=== PATIENT | male | born 1945 | race Caucasian/White ===

== ENCOUNTER 2024-08-11 23:51 | Observation (INO) | payer MEDICARE, OTHER, SELFPAY ==
[2024-08-11 15:55] VITALS: BP 149/87
--- NOTE | 2024-08-11 16:10 | ED.GENMED ---
ED Provider Triage
<Mai Doherty NP - Last Filed: 08/11/24 16:20>
-
Attestation: A medical screening examination has been initiated by a qualified medical provider. Based on the assessment performed at this time, it has been determined that an emergent medical condition may exist and the patient has been informed
that further medical evaluation and possible additional diagnostic testing may be needed.
HPI: Woke up nauseous and dizzy this 8:30 a.m. Vomited 3-4 times. Symptoms lasted until one hour ago. Now feels 'a little nauseous.'
GENERAL: Alert , in no apparent distress
ENT: No visible abnormalities.
LUNGS: No acute respiratory distress
NEUROLOGICAL: Alert and oriented
SKIN: Skin intact. No visible changes.
MUSCULOSKELETAL: Moving extremities normally
PSYCH: Normal and appropriate interaction.
This is a medical evaluation conducted in person to initiate diagnostic evaluation and provide initial therapeutics. Please see further documentation by the treating clinician.
History of Present Illness
<Mai Doherty JIG BORE TOOL MAKER - Last Filed: 08/11/24 16:20>
General
Chief Complaint: Dizziness
Time Seen by Provider: 08/11/24 19:43
<KHALIF Villalobos - Last Filed: 08/11/24 23:04>
General
Source: patient
Exam Limitations: none
History of Present Illness
History of Present Illness:
This is a 78 year old male that comes in with c/o dizziness. States that he awoke in the morning and got up to the bathroom and the room was spinning. States that he got back into bed for a couple more hours and when he got up he was still
dizzy. States that he was nauseated and did vomit several times. States that he is feeling better but is still nauseated. Denies any fever, chills, chest pain, SOB, abd pain, diarrhea, headache, urinary burning.
Past History
<Mai V. Day, JIG BORE TOOL MAKER - Last Filed: 08/11/24 16:20>
Past History
ED Past Medical History: GERD, Hypercholesterolemia and Other (prostate enlargement)
ED Past Surgical History: Orthopedic
Social History
Tobacco: Non-smoker
Personal:
Living: with family
Employment: Employed ([employer])
<KHALIF Villalobos - Last Filed: 08/11/24 23:04>
Past History
ED Past Medical History: GERD
ED Past Surgical History: Orthopedic (Brad knee surgery, Carpal tunnel left, ) and Other (Cataracts, Hernia repair)
Social History
Tobacco: Former smoker
Alcohol: None
Personal:
Living: with family
Review of Systems
<KHALIF Villalobos - Last Filed: 08/11/24 23:04>
Review of Systems
All Other Systems: ROS reviewed and negative except as documented in HPI and ROS
Constitutional: Reports no symptoms; Denies fever or chills
EENT: Reports no symptoms
Respiratory: Reports no symptoms; Denies cough or trouble breathing
Cardiac: Reports no symptoms; Denies chest pain
ABD/GI: Reports nausea and vomiting; Denies abdominal pain or diarrhea
: Reports no symptoms; Denies dysuria, frequency or urgency
Musculoskeletal: Reports no symptoms
Skin: Reports no symptoms
Neurological: Reports dizzy; Denies headache
Psychiatric: Reports no symptoms
Phy Exam
<KHALIF Villalobos - Last Filed: 08/11/24 23:04>
General Physical Exam
General Presentation: well appearing and no apparent distress
General age: appears stated age
General Skin: warm and dry
General Habitus: elderly
General Mental: alert
General Hydration: appears well hydrated
ENT Exam
ENT Exam: TM's normal, pharynx normal and neck supple
Eye Exam
Eye Exam: EOMI
Cardiovascular Exam
Cardiovascular Exam: regular rate/rhythm, no edema, no murmur and normal peripheral pulses
Pulmonary Exam
Pulmonary Exam: lungs clear, no respiratory distress, no rales, chest non tender, no crackles, no rhonchi, no wheezing and no cough
Gastrointestinal Exam
Gastrointestinal Exam: normal bowel sounds, non tender, soft, no organomegaly, no pulsatile mass and non distended
Neurological Exam
Neurological Exam: alert, oriented x3 and other (Dizzy slightly with change in position )
Musculoskeletal Exam
Musculoskeletal Exam: full ROM and no edema
Skin Exam
Skin Exam: normal color, warm/dry, no rash and no petechia
Psychiatric Exam
Psychiatric Exam: normal mood/affect
Course
<Mai Doherty, JIG BORE TOOL MAKER - Last Filed: 08/11/24 16:20>
Orders/Labs/Results
Orders:
Orders
08/11/24 16:17
CMP [Comprehensive Metabolic Panel] Urgent
Complete Blood Count/With Diff Urgent
Lipase Urgent
Urinalysis Reflex To Culture Urgent
Date Specimen was Collected: 08/11/24
Time Specimen was Collected: 16:02
08/11/24 20:11
0.9% Sodium Chloride 500 ml [Nss] 500 ml IV BOLUS
Meclizine [Antivert] 50 mg PO NOW STA
Ondansetron Injectable [Zofran] 4 mg IV NOW STA
08/11/24 20:17
Electrocardiogram (*1) Urgent
Reason for Study: Vertigo / Dizzy
EKG- Treatment ONCE
08/11/24 20:52
Troponin I Urgent
08/11/24 21:44
CT Head W/o Iv Contrast Urgent
Comment:
Reason For Exam: Dizziness.
Abnormal Lab Results
08/11/24
16:17
RBC 4.12 L 10^6/uL
(4.70-6.10)
Hct 38.5 L %
(39.0-52.0)
MCH 32.3 H pg
(27.0-31.0)
Absolute Neuts (auto) 7.3 H 10^3/uL
(1.4-6.5)
Neutrophils % 81.4 H %
(42.2-75.2)
Lymphocytes % 13.2 L %
(20.5-51.1)
Glucose 119 H mg/dl
(70-99)
08/11/24 16:17
08/11/24 16:17
Vital Signs
Initial and Last Documented VS:
Initial Vital Signs
Temp Pulse Resp BP Pulse Ox
97.8 F 85 16 149/87 98
08/11/24 15:55 08/11/24 15:55 08/11/24 15:55 08/11/24 15:55 08/11/24 15:55
Last Documented Vital Signs
Temp Pulse Resp BP Pulse Ox
97.8 F 64 15 136/69 97
08/11/24 15:55 08/11/24 22:00 08/11/24 22:00 08/11/24 22:00 08/11/24 18:03
<KHALIF Villalobos - Last Filed: 08/11/24 23:04>
Orders/Labs/Results
Orders:
Orders
08/11/24 16:17
CMP [Comprehensive Metabolic Panel] Urgent
Complete Blood Count/With Diff Urgent
Lipase Urgent
Urinalysis Reflex To Culture Urgent
Date Specimen was Collected: 08/11/24
Time Specimen was Collected: 16:02
08/11/24 20:11
0.9% Sodium Chloride 500 ml [Nss] 500 ml IV BOLUS
Meclizine [Antivert] 50 mg PO NOW STA
Ondansetron Injectable [Zofran] 4 mg IV NOW STA
08/11/24 20:17
Electrocardiogram (*1) Urgent
Reason for Study: Vertigo / Dizzy
EKG- Treatment ONCE
08/11/24 20:52
Troponin I Urgent
08/11/24 21:44
CT Head W/o Iv Contrast Urgent
Comment:
Reason For Exam: Dizziness.
Abnormal Lab Results
08/11/24
16:17
RBC 4.12 L 10^6/uL
(4.70-6.10)
Hct 38.5 L %
(39.0-52.0)
MCH 32.3 H pg
(27.0-31.0)
Absolute Neuts (auto) 7.3 H 10^3/uL
(1.4-6.5)
Neutrophils % 81.4 H %
(42.2-75.2)
Lymphocytes % 13.2 L %
(20.5-51.1)
Glucose 119 H mg/dl
(70-99)
08/11/24 16:17
08/11/24 16:17
Hyperglycemia. Lipase normal at 41, Urine negative for infection.
Vital Signs
Initial and Last Documented VS:
Initial Vital Signs
Temp Pulse Resp BP Pulse Ox
97.8 F 85 16 149/87 98
08/11/24 15:55 08/11/24 15:55 08/11/24 15:55 08/11/24 15:55 08/11/24 15:55
Last Documented Vital Signs
Temp Pulse Resp BP Pulse Ox
97.8 F 64 15 136/69 97
08/11/24 15:55 08/11/24 22:00 08/11/24 22:00 08/11/24 22:00 08/11/24 18:03
Sollt;KHALIF Villalobos - Last Filed: 08/11/24 23:04>
MDM/Problems Addressed
Differential Diagnosis Includes:
Vertigo,
MDM/Problems Addressed:
This is a 78 year old male that comes in with c/o dizziness that he awoke with this morning. States that he is feeling some better now but has been nauseated and vomited.
Will get labs, CT head and medicate with Antivert.
Back into see patient. Explained that his blood work and urine are normal. Patient states that he is still feeling dizzy. CT is questionable and patient will need MRI to r/o any cerebellar infarctions. Will admit. Hospitalist notified.
Chronic conditions affecting care:
NA
Acute Exacerbation and/or Progression of Chronic Illness:
NA
<KHALIF Villalobos - Last Filed: 08/11/24 23:04>
*Radiology
Radiology exam reviewed: radiology read reviewed (CT head-Prominence of ecxtra-axial CSF anterior to the cerebellar hemispheres, greater on the right compared to the left. Most likely represents small bilateral arachnoid cysts. Although less likely,
this could also possibly be sequela of previous peripheral cerebellar infarctions. If further) and all reviewed NAD by ED Provider (CT cont- imaging evaluation is desired, consideration for MRI of the brain. Moderate ventricular dilation, which
appeaers slightly greater than degree of atropohy. Correlate clinically for any evidence of normal pressure hydrocephalus. )
*Pulse Oximetry
Patient hypoxic: no
*EKG
Interpreted by ED Provider?: Yes
*Counter Top Maker Interpretation
Rate: Counter Top Maker- N/A
*Critical Care Note
Total Time (30-74mins, 75-104mins- exclusive of procedures): Not Applicable
ED Attending Note
<Mai Doherty JIG BORE TOOL MAKER - Last Filed: 08/11/24 16:20>
-
Portions of this chart may have been created with voice recognition software.� Occasional wrong word or��sound alike� substitutions may have occurred due to the inherent limitations of voice recognition software.
Discharge Plan
Departure
Patient Disposition: Admit
Date of Disposition: 08/11/24
Time of Disposition: 23:03
Admit to: Telemetry
Presentation/result/management discussed w/ accepting MD/DO: Hospitalist
Patient with high blood pressure during this ER visit?: Yes
Condition: Good
Covid-19: Not Applicable
Discharge Problem:
Dizziness
Referrals:
Juan Antonio Vickers MD [Family Provider] -
Interventions
Interventions:
*Risk Screen - Suicide Last Done: 08/11/24 15:55
*General Assessment Last Done: 08/11/24 22:16
*Neglect/Abuse Screening Last Done: 08/11/24 15:55
*ED COVID-19 Vaccine History Last Done: 08/11/24 22:16
ED- Neurological Assessment Last Done: 08/11/24 22:16
ED Swallowing Screen Last Done: 08/11/24 22:17
Discharge Date and Time
Print Language: FRENCH
[2024-08-11 16:27] LABS: % Basophils 0.1 % (0-2); % Eosinophils 0.8 % (0-6); % Immature Granulocytes 0.2 % (0-0.5); % Lymphocytes 13.2 % (20.5-51.1); % Monocytes 4.3 % (1.7-9.3); % Neutrophils 81.4 % (42.2-75.2); Absolute Eosinophils 0.1 10^3/uL (0-0.7); Absolute Lymphocytes 1.2 10^3/uL (1.2-3.4); Absolute Monocytes 0.4 10^3/uL (0.1-0.6); Absolute Neutrophils 7.3 10^3/uL (1.4-6.5); Hematocrit 38.5 % (39.0-52.0); Hemoglobin 13.3 g/dL (13.0-18.0); Mean Corp Hgb Conc. 34.5 g/dL (33.0-37.0); Mean Corpuscular Hgb 32.3 pg (27.0-31.0); Mean Corpuscular Volume 93.4 fL (80.0-94.0); Mean Platelet Volume 9.1 fL (7.4-10.4); Nucleated Red Blood Cells % 0 % (-); Platelet Count 261 10^3/uL (130-400); Red Blood Cell Count 4.12 10^6/uL (4.70-6.10); Red Cell Dist. Width 12.9 % (11.5-14.5); White Blood Cell Count 8.9 10^3/uL (4.8-10.8)
[2024-08-11 16:42] LABS: ALT (SGPT) 25 U/L (0-50); AST (SGOT) 33 U/L (17-59); Albumin 4.2 g/dl (3.5-5.0); Alkaline Phosphatase 85 U/L (38-126); Blood Urea Nitrogen 14 mg/dl (9-20); Calcium 9.3 mg/dl (8.4-10.2); Carbon Dioxide 28 mmol/L (22-30); Chloride 103 mmol/L (98-107); Glucose 119 mg/dl (70-99); Lipase 41 U/L (23-300); Potassium 4.1 mmol/L (3.5-5.1); Sodium 142 mmol/L (135-145); Total Bilirubin 0.7 mg/dl (0.2-1.3); eGFR > 60.00
[2024-08-11 16:50] LABS: Urine Albumin Negative (Neg - Trace); Urine Bilirubin Negative (Negative); Urine Character Clear (Clear); Urine Color Yellow; Urine Glucose Negative (Negative); Urine Ketone Negative (Negative); Urine Leukocyte Negative (Negative); Urine Nitrite Negative (Negative); Urine Occult Blood Negative (Negative); Urine Specific Gravity 1.015 (<1.030); Urine Urobilinogen Negative (Neg - 1+)
[2024-08-11 18:03] VITALS: BP 153/86
[2024-08-11] MEDS: NSS 500 IV (20:48)
[2024-08-11] MEDS: ANTIVERT 50 MG PO (20:49)
[2024-08-11] MEDS: ZOFRAN 4 MG IV (20:49)
[2024-08-11 20:51] VITALS: BP 155/79
[2024-08-11 21:00] VITALS: BP 131/78
[2024-08-11 21:27] LABS: Troponin I < 0.012 ng/ml
[2024-08-11 22:00] VITALS: BP 136/69
[2024-08-11 23:02] VITALS: BP 141/71
--- NOTE | 2024-08-11 23:28 | W.PN.UPDATE ---
Update Note
Progress Note Update
This note serves as an addendum to the H&P by bread stacker GEORGIE Karina BISWAS
HPI
78M non smoker sent from [facility]/V with underlying HX HX HLD on Rosuvastatin, BPH on Finasteride
- report woke up with abrupt onset of nausea, dizzy associated with vomiting times 3.
- reports swimming in the pool and hot tuba t [facility] independently living
PHX GERD, Hypercholesterolemia and Other (prostate enlargement)
Vital Signs
Temp Pulse Resp BP Pulse Ox
97.8 F 68 17 141/71 97
08/11/24 15:55 08/11/24 23:15 08/11/24 23:15 08/11/24 23:02 08/11/24 18:03
PE
Gen: NAD , Dizzy slightly with change in position
HEENT:
Neck: supple
Lungs: CTA
Cor: RRR S1 S2
Abdomen: soft NT NG NRT
CHICKEN BONER: AAO3
MS: no edema
Psych:
Data
Unremarkable Labs
NEG TPNI
NG UA
EKG
NORMAL SINUS RHYTHM
CANNOT RULE OUT ANTERIOR INFARCT , AGE UNDETERMINED
ABNORMAL ECG
NO PREVIOUS ECGS AVAILABLE
HCT:
Prominence of extra-axial CSF anterior to the cerebellar hemispheres, greater on the right compared to the left.
Most likely this represents small bilateral arachnoid cysts.
Although less likely, this could also possibly be sequela of previous peripheral cerebellar infarctions.
If further imaging evaluation is desired, consideration for MRI of the brain.
ASSESSMENT & PLAN
Abrupt onset of positional diziness with N/V
No focal exam . No Nystagmus
DDX: acute labyrinthitis , BPPV >> less likely central origin
- Ortho VSS
- abnormal HCT ? small bilateral arachnoid cysts.
- proceed with Brain MRI
- c/w all OP Meds
- Meclizine PRN
- PT/OT
- Neuro consult
DVT Px: SCD
Full code
Obs TLM
--- NOTE | 2024-08-11 23:39 | HPS.HSE ---
Family Physician
-
Family Physician: Juan Antonio Vickers
Chief Complaint
-
Dizziness
History of Present Illness
Patient is a 78 y/o male past medical history of hyperlipidemia and BPH who presents with dizziness. Patient reports around 7:30AM when he sat up in bed to go use the bathroom he began experiencing dizziness. He states after resting symptoms did
improve. However symptoms have persisted, and he notes with position changes he experiences a spinning sensation which can be quite severe triggering nausea. He denies similar episodes in the past. He denies any changes in hearing, tinnitus or
ear fullness. He denies focal numbness, tingling or weakness.
Medical History
Past Medical History
Past Medical History: Reports Other
Additional Past Medical History:
Hyperlipidemia
BPH
GERD
Past Surgical History: Reports Other
Additional Past Surgical History:
Bilateral Knee Arthroscopy
Left Carpal Tunnel Release
Hernia Repair
Social History
Tobacco: Former Smoker (Quit about 15 years ago)
Family History
Family History: Not pertinent
Allergies / Home Medications
Allergies reflects when Allergies were last updated in [employer]
Home Medications with original date entered in [employer]
Allergy/Medication List:
Allergies
Allergy/AdvReac Type Severity Reaction Status Date / Time
No Known Allergies Allergy Unverified 11/17/14 09:28
Home Medications
alfuzosin 10 mg tablet,extended release 24 hr 10 mg PO HS 08/11/24
azelastine 0.05 % eye drops 1 drp BOTH EYES BID 08/11/24
esomeprazole magnesium 20 mg capsule,delayed release (Nexium) 20 mg PO DAILY 08/11/24
finasteride 5 mg tablet 5 mg PO HS 08/11/24
rosuvastatin 10 mg tablet 10 mg PO HS 08/11/24
triamcinolone acetonide 0.1 % topical ointment 1 applic topical DAILY athletes foot 08/11/24
Review of Systems
-
A 12 point ROS was completed and negative except as noted: Yes
Constitutional: Denies Fever or Chills
EENT: Denies Sore Throat or Runny Nose
Respiratory: Denies Cough or Trouble Breathing
Cardiac: Denies Chest Pain or Palpitations
Neurological: Reports See HPI
Physical Exam
Vital Signs
Vital Signs
Temp Pulse Resp BP Pulse Ox
97.8 F 74 17 141/71 97
08/11/24 15:55 08/11/24 23:30 08/11/24 23:15 08/11/24 23:02 08/11/24 18:03
Physical Exam
General: Comfortable and Conversant
HEENT: Anicteric, Moist mucous membranes and PERRLA (No nystagmus )
Respiratory: Clear and Non Labored Respirations
Cardiac: S1/S2 and Regular Rhythm
GI: Soft and Non Tender
Rectal: Deferred by Provider
Musculoskeletal: No Clubbing, No Cyanosis and No Edema
Skin: Warm and Dry
Neuro: Awake, Alert, Oriented, Nonfocal/grossly intact and Other (Intact finger to nose)
Laboratory Results
-
08/11/24 16:17
08/11/24 16:17
Laboratory Results
Total Bilirubin 0.7 mg/dl (0.2-1.3) 08/11/24 16:17
AST 33 U/L (17-59) 08/11/24 16:17
ALT 25 U/L (0-50) 08/11/24 16:17
Alkaline Phosphatase 85 U/L (38-126) 08/11/24 16:17
Troponin I < 0.012 ng/ml 08/11/24 20:52
Lipase 41 U/L (23-300) 08/11/24 16:17
Data Reviewed
-
CT Scan: Report Reviewed by me
Lab Data: Labs Reviewed by me
Impression/Plan
-
Dizziness, suspect labyrinthitis vs BPPV, less likely acute stroke
-Consult Neurology
-Check Brain MRI
-Consult PT/OT
-Continue Meclizine prn
Hyperlipidemia
-Continue Crestor
BPH
-Continue finasteride
GERD
-Continue PPI
DVT proph: SCDs
Code Status: Full Code
[2024-08-12] VITALS (7 sets, daily range): BP systolic 135–166; BP diastolic 71–98; PULSE 62–95; BMI 28.8
--- NOTE | 2024-08-12 05:34 | PTCARENOTE ---
Received pt from the ED via stretcher. Pt with steady gait into the room. AAOx3, NSR/sinus nanette on the monitor, +1 edema to b/l LE, lungs clear, +bowel sounds, pt continent of bowel and bladder. Remainder of assessment as documented. Pt offers no
complaints, states he has mild dizziness with position changes, when he sits for a minute between position changes, dizziness decreases. Orthostatics negative. Pt updated on plan for neuro consult in the AM and potential for MRI. Pt oriented to unit
and call darden, resting comfortably in bed.
[2024-08-12 07:13] LABS: Hematocrit 33.8 % (39.0-52.0); Hemoglobin 11.5 g/dL (13.0-18.0); Mean Corpuscular Hgb 31.1 pg (27.0-31.0); Mean Corpuscular Volume 91.4 fL (80.0-94.0); Mean Platelet Volume 9.5 fL (7.4-10.4); Platelet Count 274 10^3/uL (130-400); Red Cell Dist. Width 13.2 % (11.5-14.5); White Blood Cell Count 6.8 10^3/uL (4.8-10.8)
[2024-08-12 07:33] LABS: Blood Urea Nitrogen 13 mg/dl (9-20); Carbon Dioxide 30 mmol/L (22-30); Chloride 105 mmol/L (98-107); Estimated Creatinine Clearance 64 ml/min; Glucose 86 mg/dl (70-99); HDL Cholesterol 43 mg/dl; LDL Cholesterol, Calculated 49 mg/dl; Potassium 3.8 mmol/L (3.5-5.1); Sodium 143 mmol/L (135-145); Total Cholesterol 109 mg/dl (50-199); Triglyceride 85 mg/dl (10-149); Very Low Density Lipoprotein 17 mg/dl (0-30); eGFR > 60.00
--- NOTE | 2024-08-12 08:31 | CON.NEURO ---
Consultation
Order
Date of Consultation: 08/12/24
Requesting Provider: Abigail Jc PA-C
Reason for Consult: vertigo
CC: dizziness
HPI: This is a 78-year-old man who presented to [facility] on August 11, 2024 with dizziness. According to the patient
According to the patient he developed an acute sensation of constant, non positional room spinning with associated nausea and imbalance and several episodes of emesis that he developed a pulmonary awakening on the day of presentation
His symptoms reportedly lasted for several hours with significant improvement as of now. No reports of head trauma, headache, dysarthria, dysphagia visual, motor or sensory changes. Mr. Corbett denied having ear pain, tinnitus or fever. He went
swimming on Sunday afternoon prior to the onset of symptoms
ER VS: 149/87-155/79, 85, afebrile
PDMP: No recently prescribed medications
Labs: glucose�119 normal WBCs, platelets, sodium, UA, troponin, LDL�49,
CT head- bilateral arachnoid cysts, less likely infarcts, ventriculomegaly 'slightly greater' than degree of atrophy based on radiology report. No callosal angle or Yeh ration is provided.
MAR: Meclizine 50 mg, normal saline 500 mL, ondansetron 4 mg.
PMH: DLP, GERD, BPH, OA
PSH: right cataract surgery BL TKA, L CTS, hernia repair
SH: , former smoker, retired from [employer]; no history excessive alcohol use
FH: Mother at the age of 86 from dementia, father in the age of 90 from MVA related injury
All:NKDA
Home Medications
alfuzosin 10 mg tablet,extended release 24 hr 10 mg PO HS 08/11/24
azelastine 0.05 % eye drops 1 drp BOTH EYES BID 08/11/24
esomeprazole magnesium 20 mg capsule,delayed release (Nexium) 20 mg PO DAILY 08/11/24
finasteride 5 mg tablet 5 mg PO HS 08/11/24
rosuvastatin 10 mg tablet 10 mg PO HS 08/11/24
triamcinolone acetonide 0.1 % topical ointment 1 applic topical DAILY athletes foot 08/11/24
ROS: Constitutional: Negative. Negative for chills, fever and unexpected weight change.
HENT: Positive for vertigo, hearing impaired
Eyes: Negative. Negative for photophobia, pain and visual disturbance.
Respiratory: Negative for cough, choking and shortness of breath.
Cardiovascular: Positive for intermittent lightheadedness
Gastrointestinal: Positive for nausea and transient emesis
Endocrine: Negative. Negative for cold intolerance.
Genitourinary: Negative for dysuria, flank pain and urgency.
Musculoskeletal: Negative for back pain, gait problem, neck pain and neck stiffness.
Skin: Negative for rash.
Allergic/Immunologic: Negative. Negative for immunocompromised state.
Neurological: Positive for imbalance
Psychiatric/Behavioral: Negative for behavioral problems, confusion and hallucinations.
General: Well developed. In no acute distress.
Cardio: Regular rate and rhythm without murmur. Extremities are without cyanosis or edema.
Neuro:
Mental Status: Alert, oriented to person, place, and date. Normal attention and recall. Good fund of knowledge. Follows complex requests across the midline. Comprehension, naming, and repetition intact. Immediate and delayed recall 3/3.
Cranial Nerves: OD 3mm, surgical, OS 3 mm, reactive. EOMs full. Visual finn full to confrontation. No ptosis. No nystagmus. V1-V3 intact to light touch and pinprick bilaterally, symmetric. Face symmetric. Poor hearing AU. The palate
elevated well. SCMs and traps 5/5. Tongue midline. No dysarthria.
Motor: Normal bulk and tone. No pronator or arm drift. Strength 5/5 throughout. No clonus.
Reflexes: 2+ throughout the upper extremities and knees. Plantar responses flexor bilaterally.
Sensory: Reduced vibration at the toes and ankles
Coordination: No dysmetria or tremor.
Gait: wide stance, normal base, stride
Assessment and Plan:
I. Transient vertigo. Neuroexam
II. Distal symmetric large fiber polyneuropathy.
III. 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
-Fall precaution
-Please obtain orthostatic vital signs
-Polyneuropathy blood work
-Brain MRI without kate
-Meclizine 25 every 8 hours.
-PT
-ENT consult
I personally reviewed all radiology and labs along with past medical records pertinent to current medical problems. Total time spent in patient care is 62 minutes.
Thank you for allowing us to participate in the care of this patient. We will continue to follow. Please do not hesitate to contact us with any questions or concerns.
Subjective/Objective
Subjective Data
Date of Service: August 12, 2024
Objective Data
Vital Signs
Temp Pulse Resp BP Pulse Ox
36.7 C 62 16 137/71 99
08/12/24 07:18 08/12/24 07:18 08/12/24 07:18 08/12/24 07:18 08/12/24 07:18
Lab Results
08/12/24 06:26
08/12/24 06:26
Sodium 143 mmol/L (135-145) 08/12/24 06:26
Potassium 3.8 mmol/L (3.5-5.1) 08/12/24 06:26
BUN 13 mg/dl (9-20) 08/12/24 06:26
Glucose 86 mg/dl (70-99) 08/12/24 06:26
Calcium 9.0 mg/dl (8.4-10.2) 08/12/24 06:26
LDL Cholesterol, Calc 49 mg/dl 08/12/24 06:26
Patient Allergies
No Known Allergies Allergy (Unverified 11/17/14 09:28)
Medications
-
Active Medications
Generic Name Dose Route Start Last Admin
Trade Name Freq PRN Reason Stop Dose Admin
Acetaminophen 650 mg 08/12/24 01:00
Acetaminophen 650 Mg Rectal Suppository RECTAL 09/09/24 00:59
Q4HPRN PRN
SOLANO, mild pain, or temp >100.4F
Acetaminophen 650 mg 08/12/24 01:00
Acetaminophen 325 Mg Tablet PO 09/09/24 00:59
Q4HPRN PRN
SOLANO, mild pain, or temp >100.4F
Finasteride 5 mg 08/12/24 22:00
Finasteride 5 Mg Tablet PO 09/09/24 21:59
HS ALLY
Meclizine HCl 25 mg 08/12/24 01:00
Meclizine 25 Mg Tablet PO 09/09/24 00:59
Q8HPRN PRN
vertigo
Ondansetron HCl 4 mg 08/12/24 01:00
Ondansetron 4 Mg/2 Ml Vial IV 09/09/24 00:59
Q6HPRN PRN
NAUSEA/VOMITING
Pantoprazole Sodium 40 mg 08/12/24 08:00
Pantoprazole 40 Mg Delayed Release Tablet PO 09/09/24 07:59
DAILY ALLY
Rosuvastatin Calcium 10 mg 08/12/24 22:00
Rosuvastatin (Crestor) 10 Mg Tablet PO 09/09/24 21:59
HS ALLY
Sodium Chloride 0 flush 08/12/24 02:00
Sodium Chloride 0.9% (Flush) Syringe IV 09/09/24 01:59
PER PROTOCOL ALLY
Tamsulosin HCl 0.4 mg 08/12/24 22:00
Tamsulosin 0.4 Mg Capsule PO 09/09/24 21:59
HS ALLY
Home Medications
�Medication �Instructions �Recorded
alfuzosin 10 mg tablet,extended 10 mg PO HS 08/11/24
release 24 hr
azelastine 0.05 % eye drops 1 drp BOTH EYES BID 08/11/24
esomeprazole magnesium 20 mg 20 mg PO DAILY 08/11/24
capsule,delayed release (Nexium)
finasteride 5 mg tablet 5 mg PO HS 08/11/24
rosuvastatin 10 mg tablet 10 mg PO HS 08/11/24
triamcinolone acetonide 0.1 % 1 applic topical DAILY athletes 08/11/24
topical ointment foot
Vital Signs and Labs
-
Vital Signs and Labs:
Vital Signs
Temp Pulse Resp BP Pulse Ox
36.7 C 62 16 137/71 99
08/12/24 07:18 08/12/24 07:18 08/12/24 07:18 08/12/24 07:18 08/12/24 07:18
Lab Results
08/12/24 06:26
08/12/24 06:26
Sodium 143 mmol/L (135-145) 08/12/24 06:26
Potassium 3.8 mmol/L (3.5-5.1) 08/12/24 06:26
BUN 13 mg/dl (9-20) 08/12/24 06:26
Glucose 86 mg/dl (70-99) 08/12/24 06:26
Calcium 9.0 mg/dl (8.4-10.2) 08/12/24 06:26
LDL Cholesterol, Calc 49 mg/dl 08/12/24 06:26
Medications
-
Medications:
Generic Name Dose Route Start Last Admin
Trade Name Freq PRN Reason Stop Dose Admin
Acetaminophen 650 mg 08/12/24 01:00
Acetaminophen 650 Mg Rectal Suppository RECTAL 09/09/24 00:59
Q4HPRN PRN
SOLANO, mild pain, or temp >100.4F
Acetaminophen 650 mg 08/12/24 01:00
Acetaminophen 325 Mg Tablet PO 09/09/24 00:59
Q4HPRN PRN
SOLANO, mild pain, or temp >100.4F
Finasteride 5 mg 08/12/24 22:00
Finasteride 5 Mg Tablet PO 09/09/24 21:59
HS ALLY
Meclizine HCl 25 mg 08/12/24 01:00
Meclizine 25 Mg Tablet PO 09/09/24 00:59
Q8HPRN PRN
vertigo
Ondansetron HCl 4 mg 08/12/24 01:00
Ondansetron 4 Mg/2 Ml Vial IV 09/09/24 00:59
Q6HPRN PRN
NAUSEA/VOMITING
Pantoprazole Sodium 40 mg 08/12/24 08:00 08/12/24 09:10
Pantoprazole 40 Mg Delayed Release Tablet PO 09/09/24 07:59 40 mg
DAILY ALLY Administration
Rosuvastatin Calcium 10 mg 08/12/24 22:00
Rosuvastatin (Crestor) 10 Mg Tablet PO 09/09/24 21:59
HS ALLY
Sodium Chloride 0 flush 08/12/24 02:00
Sodium Chloride 0.9% (Flush) Syringe IV 09/09/24 01:59
PER PROTOCOL ALLY
Tamsulosin HCl 0.4 mg 08/12/24 22:00
Tamsulosin 0.4 Mg Capsule PO 09/09/24 21:59
HS ALLY
Home Medications
-
Home Medications
alfuzosin 10 mg tablet,extended release 24 hr 10 mg PO HS Urinary Issue 08/11/24
azelastine 0.05 % eye drops 1 drp BOTH EYES BID Allergies 08/11/24
esomeprazole magnesium 20 mg capsule,delayed release (Nexium) 20 mg PO DAILY Gastrointestinal Issue 08/11/24
finasteride 5 mg tablet 5 mg PO HS Urinary Issue 08/11/24
rosuvastatin 10 mg tablet 10 mg PO HS High Cholesterol 08/11/24
triamcinolone acetonide 0.1 % topical ointment 1 applic topical DAILY athletes foot 08/11/24
[2024-08-12 08:41] LABS: Glycohemoglobin (HgbA1c) 5.2 % (4.0-5.6)
[2024-08-12] MEDS: PROTONIX 40 MG PO (09:10)
[2024-08-12 11:33] LABS: Vitamin B12 710 pg/ml (239-931)
--- NOTE | 2024-08-12 11:46 | CM ---
Patient out of the room, at bedside. Per , they live in an independent apartment at [facility], and are recent newlyweds. Patient was independent prior to admission. Patient PCP is Dr. Vickers and he uses the [facility] in [place]. Patient
was given the OBS/BRADY form and will review and sign form with patient when he returns from test. CM will continue to follow for discharge planning needs.
Plan; home with spouse, watch for any VN needs
--- NOTE | 2024-08-12 15:19 | W.PN.HOSP.TC ---
Today's Communication/Plan
-
d/c home
Assessment / Plan
Assessment / Plan
Acute vertigo
-Neurology input noted
-MRI brain neg
-PT cleared for outpatient vestibular therapy
-Continue Meclizine prn
-ENT f/u post discharge
Hyperlipidemia
-Continue Crestor
BPH
-Continue finasteride
GERD
-Continue PPI
DVT proph: SCDs
Code Status: Full Code
More than 30 minutes spent in discharge including
Final examination of the patient
Summarizing hospital stay
Instructions for continuing care to all relevant caregivers
Preparation of discharge records, prescriptions, and referral forms
Total time spent (in minutes): 38 mins
Anticipated Discharge: Today
Subjective/Interval History
-
Date of Service: August 12, 2024
feeling better
no n/v overnight
no new issues
Objective Data
-
Labs:
Laboratory Results
08/12/24
06:26
WBC 6.8
Hgb 11.5 L
Hct 33.8 L
Plt Count 274
Sodium 143
Potassium 3.8
Chloride 105
Carbon Dioxide 30
BUN 13
Creatinine 0.9
Glucose 86
Calcium 9.0
Vital Signs:
Vital Signs
Temp Pulse Resp BP Pulse Ox
98 F 66 16 162/78 97
08/12/24 15:02 08/12/24 15:02 08/12/24 15:02 08/12/24 15:02 08/12/24 15:02
Review of Systems
-
Respiratory: Reports No Symptoms
Cardiac: Reports No Symptoms
Abdomen/GI: Reports No Symptoms
Physical Exam
-
General: No Apparent Distress and Comfortable
HEENT: Negative Oxygen
Respiratory: Clear to Auscultation
Cardiac: Regular Rhythm and S1/S2; Negative Murmur or Rub
GI: Soft, Nontender, Nondistended and Normal Bowel Sounds
Musculoskeletal: No Edema
Neuro: Awake, Alert, Oriented, No Motor Deficits and Nonfocal/Grossly Intact
Psych: Calm
--- NOTE | 2024-08-12 17:26 | W.DCSUMMARY ---
Discharge Summary
Discharge Data
Date of Admission: 08/11/24
Date of Discharge: 08/12/24
-
Pending Results: No
Hospital Course
Discharging Physician : Dr Harshad Verdin
Disposition : Home
Primary care physician : Dr Juan Antonio arriola
Principal Discharge diagnosis :
Acute vertigo
Nausea/vomiting
Chronic Discharge diagnosis :
Hyperlipidemia
Benign prostatic hyperplasia
Gastroesophageal reflux disease
Hospital Course :
Patient is a 78-year-old male with no mentioned past medical history came to [place] for new onset of dizziness. Patient developed symptoms of nonpositional room spinning associated with nausea and balance issues day before ER visit. Patient
denies of having any previous episodes like this in the past. At admission patient was felt to having vertigo episode versus possible vasculitis episode. Patient was started on symptomatic care for suspected vertigo. Neurology evaluated patient
and recommended follow-up MRI brain which was negative for any acute abnormality. Patient was evaluated by physical therapy and was deemed appropriate for outpatient vestibular therapy assessment. Patient was also provided contact number of ENT
office to follow-up.
Important imaging findings :
None
Procedure findings :
None
Discharge Plan
-
Patient Disposition: Home (Routine Discharge)
Discharge Diagnosis/Procedures: Vertigo
Condition: Fair
Diet: 2 Gram Sodium
Activity: As tolerated
Driving Restrictions: No driving
Bathing Restrictions: OK to Shower
Referrals:
Juan Antonio Vickers MD [Family Provider] - in one week
Cecilio Lester MD [Active] -
Prescriptions:
New
meclizine 25 mg Tablet
25 mg PO Q8HPRN PRN (Reason: vertigo) Qty: 30 0RF
Continued
azelastine 0.05 % Drops
1 drp BOTH EYES BID
triamcinolone acetonide 0.1 % Ointment
1 applic TOPICAL DAILY
finasteride 5 mg Tablet
5 mg PO HS
esomeprazole magnesium [Nexium] 20 mg Capsule,Delayed Release(Dr/Ec)
20 mg PO DAILY
rosuvastatin 10 mg Tablet
10 mg PO HS
alfuzosin 10 mg Tablet Extended Release 24 Hr
10 mg PO HS
Discharge Orders:
Discharge Patient (As Directed); Ordered 08/12/24
Ordered By: Harshad Verdin
Discharge Date and Time
Discharge Date/Time: 08/12/24 16:48
Print Language: LEBANESE
== END 2024-08-12 16:48 | disposition home or self-care (01) ==
LOC: 3 WEST ACU 23:51
PROVIDERS: Clinical Nurse Specialist Family Health; Physician Assistant Medical; Student in an Organized Health Care Education/Training Program; ADMITTING PHYSICIAN Internal Medicine; ATTENDING PHYSICIAN Hospitalist; CONSULT PHYSICIAN Psychiatry & Neurology Neurology; EMERGENCY PHYSICIAN Student in an Organized Health Care Education/Training Program; FAMILY PHYSICIAN Internal Medicine
DX: R42 Dizziness and giddiness (principal); R11.2 Nausea with vomiting, unspecified; K21.9 Gastro-esophageal reflux disease without esophagitis; E78.00 Pure hypercholesterolemia, unspecified; N40.0 Benign prostatic hyperplasia without lower urinary tract symptoms; R73.9 Hyperglycemia, unspecified; R94.31 Abnormal electrocardiogram [ECG] [EKG]; R26.89 Other abnormalities of gait and mobility; G62.9 Polyneuropathy, unspecified; G31.9 Degenerative disease of nervous system, unspecified; I67.82 Cerebral ischemia; Z87.891 Personal history of nicotine dependence
CPT/HCPCS: 70450; 70551; 80048; 80053; 80061; 81003; 82607; 83036; 83690; 83735; 84155; 84165; 84425; 84484; 85025; 85027; 93005; 96361; 96374; 97116; 97162; 97166; 99285; G0378